=== PATIENT | male | born 1960 | race Caucasian/White ===

== ENCOUNTER 2019-06-19 17:05 | Emergency (ER) | payer SELFPAY ==
--- NOTE | 2019-06-19 17:25 | PDOC ---
Rapid Medical Evaluation Medical Evaluation: Allergies Allergy/AdvReac Type Severity Reaction Status Date / Time No Known Allergies Allergy Verified 10/08/14 14:21 06/19/19 17:24 Pt slipped and fell today at [employer] on ice cream. Reports pain in the R leg , shoulder. States he hit his head. Exam: TTP of the R calf, upper leg Orders: defer to provider Pt to proceed to the ER for further evaluation Discharge Disposition - Diagnosis Fall - Referrals - Patient Instructions - Post Discharge Activity
[2019-06-19 17:37] VITALS: BP 137/59; PULSE 67; TEMP 97.6; BMI 27.0
[2019-06-19] MEDS ORDERED: KETOROLAC TROMETHAMINE 30 MG/1 ML VIAL IM ONE (18:52)
--- NOTE | 2019-06-19 18:52 | PDOC ---
History of Present Illness - General Chief Complaint: Pain Stated Complaint: FALL Time Seen by Provider: 06/19/19 17:33 - History of Present Illness Initial Comments: 06/19/19 18:48 CHIEF COMPLAINT: fall HISTORY OF PRESENT ILLNESS: 59 yo M with hx of HTN, HLD, IDDM, presents to fast track with pain to R hip and knee s/p fall. Patient reports that he was walking with his niece when he tripped and fell, bending his R leg backwards and "I hit my head a little bit." He denies any LOC, denies any current headache or pain to his head or neck. He complains of pain to his R thigh, hip , and knee. . Patient is fully ambulatory in ED. No recent travel or sick contacts. PAST MEDICAL HISTORY: HTN, HLD, IDDM FAMILY HISTORY: Denies SOCIAL HISTORY: Denies tobacco, alcohol, illicit drug use. ALLERGIES: No known drug allergies REVIEW OF SYSTEMS General/Constitutional: Denies fever or chills. Denies weakness, weight change. HEENT: Denies change in vision. Denies ear pain or discharge. Denies sore throat. Cardiovascular: Denies chest pain or shortness of breath. Respiratory: Denies cough, wheezing, or hemoptysis. Gastrointestinal: Denies nausea, vomiting, diarrhea or constipation. Denies rectal bleeding. Genitourinary: Denies dysuria, frequency, or change in urination. Musculoskeletal: Pain to R hip, thigh, knee. Skin and breasts: Denies rash or easy bruising. Neurologic: Denies headache, vertigo, loss of consciousness, or loss of sensation. PHYSICAL EXAM General Appearance: Well-appearing, appropriately dressed. No apparent distress. HEENT: EOMI, PERRLA, normal ENT inspection, normal voice, TMs normal, pharynx normal. No conjunctival pallor. No photophobia, scleral icterus. Neck: Supple. Trachea midline. No tenderness, rigidity, carotid bruit, stridor , lymphadenopathy, or thyromegaly. Respiratory/Chest: Lungs CTAB. No shortness of breath, chest tenderness, respiratory distress, accessory muscle use. No crackles, rales, rhonchi, stridor , wheezing, dullness Cardiovascular: RRR. S1, S2. No JVD, murmur, bradycardia, tachycardia. Vascular Pulses: Dorsalis-Pedis (R): 2+, Dorsalis-Pedis (L): 2+ Gastrointestinal/Abdominal: Normal bowel sounds. Abdomen soft, non-distended. No tenderness or rebound tenderness. No organomegaly, pulsatile mass, guarding , hernia, hepatomegaly, splenomegaly. Lymphatic: No adenopathy, tenderness. Musculoskeletal/Extremities: Tenderness to R thigh on deep palpation. No deformity, full ROM to entire R lower extremity. Hips stable. Normal inspection. FROM of all other extremities, normal capillary refill. Pelvis Stable. No CVA tenderness. No tenderness to extremities, pedal edema, swelling , erythema or deformity. Integumentary: Appropriate color, dry, warm. No cyanosis, erythema, jaundice or rash Neurologic: mechanical maintenance technician II-XII intact. Fully oriented, alert. Appropriate mood/affect. Motor strength 5/5. No appreciable EOM palsy, facial droop or sensory deficit. A&Ox3, follow commands, respond appropriately CN2-12: conjugate gaze, pupil round, equal and reactive to light. Visual field full to confrontation. EOMI without nystagmus, pursuit is smooth without saccade. Facial sensation and muscle activation intact bilaterally. Hearing intact bilaterally. Palate elevate symmetrically. Shoulder shrug and neck turn full strength. Tongue protrude midline. Motor: UE and LE strength 5/5 throughout bilaterally. Muscle tone and bulk normal. Cerebellar: Rapid-alternating movement with regular rhythm without bradykinesia. [id number] and arso-ld-[id number] intact bilaterally without dysmetria or overshoot. Gait narrow based. No shuffling. Full hip flexion and knee flexion. Negative Romberg No involuntary movement noted. No pronator drift. No clonus. 06/19/19 19:50 Past History - Past Medical History Allergies/Adverse Reactions: Allergies Allergy/AdvReac Type Severity Reaction Status Date / Time No Known Allergies Allergy Verified 06/19/19 17:32 Home Medications: Ambulatory Orders Cephalexin [Keflex] 500 mg PO BID #20 capsule 10/08/14 Oxycodone HCl/Acetaminophen [Percocet 5-325 mg Tablet -] 1 - 2 tab PO Q6H PRN # 20 tablet 10/08/14 Ibuprofen 600 mg PO TID #20 tablet 06/19/19 Diabetes: Yes - Suicide/Smoking/Psychosocial Hx Smoking History: Current every day smoker Have you smoked in the past 12 months: No Number of Cigarettes Smoked Daily: 20 Information on smoking cessation initiated: Yes Hx Alcohol Use: No Drug/Substance Use Hx: No Substance Use Type: None *Physical Exam - Vital Signs Last Vital Signs Temp Pulse Resp BP Pulse Ox 97.6 F 67 16 137/59 L 98 06/19/19 17:33 06/19/19 17:33 06/19/19 17:33 06/19/19 17:33 06/19/19 17:33 ED Treatment Course - RADIOLOGY Radiology Studies Ordered: Category Date Time Status FEMUR-RIGHT [RAD] Stat Radiology 06/19/19 18:48 Ordered HIP & PELVIS-RIGHT [RAD] Stat Radiology 06/19/19 18:48 Ordered KNEE 3 POS-RIGHT [RAD] Stat Radiology 06/19/19 18:48 Ordered Medical Decision Making - Medical Decision Making 06/19/19 18:51 59 yo M with hx of HTN, HLD, IDDM, presents to fast track with pain to R hip and knee s/p fall. -xray hip/femur/knee. -toradol 06/19/19 19:49 x-rays negative for fracture or dislocation. Advised patient to f/u with ortho if symptoms persist past 1 week. Advised patient of signs and symptoms for return to ER; patient verbalized understanding and agrees to plan. *DC/Admit/Observation/Transfer Diagnosis at time of Disposition: Fall Qualifiers: Encounter type: initial encounter Qualified Code(s): W19.XXXA - Unspecified fall, initial encounter - Discharge Dispostion Disposition: HOME Condition at time of disposition: Stable Decision to Admit order: No - Prescriptions Prescriptions: Ibuprofen 600 mg PO TID #20 tablet - Referrals Referrals: Marcial Melgoza MD [Staff Physician] - - Patient Instructions Printed Discharge Instructions: DI for Leg Pain Additional Instructions: Please take medications as prescribed. Follow up with orthopedics if symptoms persist. If you develop any headache, dizziness, change in vision, nausea, vomiting, or any new or worsening symptoms, please return to the ER. - Post Discharge Activity
[2019-06-19] MEDS ORDERED: KETOROLAC TROMETHAMINE 30 MG/1 ML VIAL ONE (19:05)
== END 2019-06-19 20:07 | disposition home or self-care (01) ==
LOC: JER 17:05 → JERFT 17:05
PROC: 3E0233Z Introduction of Anti-inflammatory into Muscle, Percutaneous Approach (ICD-10-PCS; principal; 2019-06-19)
DX: Z04.3 Encounter for examination and observation following other accident (principal); I10 Essential (primary) hypertension; E78.5 Hyperlipidemia, unspecified; E11.9 Type 2 diabetes mellitus without complications; W01.0XXA Fall on same level from slipping, tripping and stumbling without subsequent striking against object, initial encounter; Y93.89 Activity, other specified; Y92.512 Supermarket, store or market as the place of occurrence of the external cause
CPT/HCPCS: 73523-TC-FY; 73552-TC-RT-FY; 73562-TC-RT-FY; 99281-25